=== PATIENT | male | born 1955 | race African-American/Black ===

== ENCOUNTER 2019-07-03 15:22 | Emergency (ER) | payer MEDICARE, MEDICAID ==
[~2019-07-03] VITALS: Ht 167.6 cm; Wt 81.6 kg
[2019-07-03 15:22] VITALS: BP 118/83
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
--- NOTE | 2019-07-03 16:15 | NUR ---
ED Nurse Note: patient is taken to CT /Xray
--- NOTE | 2019-07-03 16:33 | NUR ---
ED Nurse Note: patient came back from CT scan in stable condition
--- NOTE | 2019-07-03 16:55 | NUR ---
ED Nurse Note: sandwiches provided to the patient as ordered by Jeff LANCE. patient is tolerating.
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
[2019-07-03] MEDS ORDERED: LIDODERM700 M1 TOPIC (17:27)
[2019-07-03] MEDS ORDERED: IBUPROFEN600 MG ORAL (17:27)
[2019-07-03] MEDS ORDERED: ROBAXIN-500MG ORAL (17:27)
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
[2019-07-03] MEDS ORDERED: Methocarbamol 750mg tab ORAL ONE (17:30)
[2019-07-03 17:40] VITALS: BP 118/83
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
== END 2019-07-03 17:40 | disposition home or self-care (01) ==
LOC: EDBD 15:22 → EMR 15:35
DX: S20.229A Contusion of unspecified back wall of thorax, initial encounter (principal); S30.0XXA Contusion of lower back and pelvis, initial encounter; S00.93XA Contusion of unspecified part of head, initial encounter; S16.1XXA Strain of muscle, fascia and tendon at neck level, initial encounter; V43.62XA Car passenger injured in collision with other type car in traffic accident, initial encounter; Y92.410 Unspecified street and highway as the place of occurrence of the external cause
CPT/HCPCS: 70450; 72125; 72128; 72131; 99284